=== PATIENT | female | born 1975 | race American Indian/Alaskan Native ===

== ENCOUNTER 2018-03-04 11:22 | Emergency (ER) | payer OTHER ==
[2018-03-04 11:54] VITALS: BP 128/83
--- NOTE | 2018-03-04 12:04 | Emergency Department Report ---
HPI - General Chief Complaint: Extremity Injury, Lower Time Seen by Provider: 03/04/18 11:57 - HPI HPI: 42-year-old female presents to the emergency department with a complaint of right hamstring pain since last night. The patient was walking into her home holding groceries and started to slip. She tried to catch herself but in doing so she felt a tearing sensation to the back of her leg along where the hamstring is. She is able to ambulate but has pain with doing so. She denies any other past medical history. She has not taken anything for her symptoms prior to presentation. ED Past Medical Hx - Past Medical History Previous Medical History?: No - Surgical History Additional Surgical History: 3 c-sections, Lap,partial hysterectomy, tubiligation and reversal - Social History Smoking Status: Never Smoker Substance Use Type: None - Medications Home Medications: Home Medications Medication Instructions Recorded Confirmed Last Taken Type HYDROcodone/APAP 5-325 [[place] 1 each PO Q6HR PRN #10 tablet 03/04/18 Unknown Rx 5/325] ED Review of Systems ROS: Stated complaint: HAMSTRING INJURY Other details as noted in HPI Comment: All other systems reviewed and negative Constitutional: denies: chills, fever Eyes: denies: eye pain, eye discharge, vision change ENT: denies: ear pain, throat pain Respiratory: denies: cough, shortness of breath, wheezing Cardiovascular: denies: chest pain, palpitations Gastrointestinal: denies: abdominal pain, nausea, diarrhea Genitourinary: denies: urgency, dysuria, discharge Musculoskeletal: myalgia. denies: joint swelling Skin: denies: rash, lesions Neurological: denies: headache, weakness, paresthesias Physical Exam - Physical Exam Vital Signs: Vital Signs 03/04/18 11:51 Temperature 99.1 F Pulse Rate 65 Respiratory 16 Rate Blood Pressure 128/83 O2 Sat by Pulse 100 Oximetry Physical Exam: GENERAL: The patient is well-developed well-nourished. HENT: Normocephalic. Atraumatic. Patient has moist mucous membranes. EYES: Extraocular motions are intact. NECK: Supple. Trachea is midline. CHEST/LUNGS: Clear to auscultation. There is no respiratory distress noted. HEART/CARDIOVASCULAR: Regular. There is no tachycardia. There is no murmur. ABDOMEN: There is no abdominal distention. SKIN: Skin is warm and dry. NEURO: The patient is awake, alert, and oriented. The patient is cooperative. The patient has no focal neurologic deficits. The patient has normal speech. MUSCULOSKELETAL: The patient has pain to the posterior proximal right leg, about the hamstring, with straight leg extension and flexion. ED Course Vital Signs 03/04/18 11:51 Temperature 99.1 F Pulse Rate 65 Respiratory 16 Rate Blood Pressure 128/83 O2 Sat by Pulse 100 Oximetry ED Medical Decision Making - Medical Decision Making Patient had sudden pain and a tearing sensation to the back of the right leg, along the hamstring, last night. She is able to ambulate but has pain with doing so. Given the location of her discomfort and the concern that it is the hamstring muscle, I do not feel that any imaging of the femur is necessary at this time. 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 She does have reproducible discomfort with both straight leg extension and flexion over the hamstring. She will placed on crutches and has been given referrals for orthopedic groups. She has been given a small amount of pain medication. She will return to the ER with any worsening of her symptoms or any acute distress. - Differential Diagnosis hamstring sprain, hamstring tear, avulsion fracture, muscle spasm Critical Care Time: No Critical care attestation.: If time is entered above; I have spent that time in minutes in the direct care of this critically ill patient, excluding procedure time. ED Disposition Clinical Impression: Hamstring injury Qualifiers: Encounter type: initial encounter Laterality: right Qualified Code(s): S76.301A - Unspecified injury of muscle, fascia and tendon of the posterior muscle group at thigh level, right thigh, initial encounter Disposition: - TO HOME OR SELFCARE Is pt being admited?: No Condition: Stable Additional Instructions: Use the crutches as needed. I have given you a referral for Dr. Kohli and [facility], 2 different orthopedic groups, to follow up regarding your right leg/hamstring pains. Return to the emergency Department with any worsening of your symptoms or any acute distress. You have been prescribed a medication that is sedating and therefore should not be taken prior to driving, working, and responsible for children and in no way should be mixed with alcohol of any quantity. Prescriptions: HYDROcodone/APAP 5-325 [[place] 5/325] 1 each PO Q6HR PRN #10 tablet PRN Reason: Pain Referrals: LESLY KOHLI MD [Staff Physician] - 2-3 Days [facility] [Provider Group] - 2-3 Days Time of Disposition: 12:04
== END 2018-03-04 12:26 | disposition home or self-care (01) ==
LOC: ED 11:22
DX: S76.301A Unspecified injury of muscle, fascia and tendon of the posterior muscle group at thigh level, right thigh, initial encounter (principal); Z90.710 Acquired absence of both cervix and uterus; Z98.51 Tubal ligation status; Z88.1 Allergy status to other antibiotic agents; W18.49XA Other slipping, tripping and stumbling without falling, initial encounter; Y93.89 Activity, other specified; Y99.8 Other external cause status; Y92.019 Unspecified place in single-family (private) house as the place of occurrence of the external cause
CPT/HCPCS: 99283

== ENCOUNTER 2020-11-13 10:07 | Emergency (ER) | payer BC, OTHER ==
[2020-11-13 10:31] VITALS: BP 132/103
[2020-11-13 11:12] LABS: Bilirubin,Urine NEG (Negative); Blood,Urine LG (Negative); Color,Urine Amber (Yellow); Mucus,Urine 1+ /HPF
[2020-11-13 11:16] LABS: RBC,Urine > 182.0 /HPF (0.0-6.0); WBC,Urine > 182.0 /HPF (0.0-6.0)
[2020-11-13] MEDS ORDERED: SULFAMETHOXAZOLE/TRIMETHOPRIM 800/160MG DS TAB PO ONE (12:02)
--- NOTE | 2020-11-13 12:02 | Emergency Department Report ---
ED Female HPI - General Chief complaint: Vaginal Bleeding Stated complaint: VAG BLEEDING Time Seen by Provider: 11/13/20 11:14 Source: patient Mode of arrival: Ambulatory Limitations: No Limitations - History of Present Illness Initial comments: 45-year-old female, no past medical history, presents to ED with hematuria. Patient is status post hysterectomy. She states after urinating this morning, she saw blood on the toilet paper when she wiped. States urine was not initially dark, however has become darker throughout the day. Patient reports urinary frequency and urgency. She denies any fever, nausea or vomiting, back pain. She reports suprapubic discomfort at the end of urination. Complaint: other -: This morning Severity: mild Quality: cramping Consistency: constant Improves with: none Worsens with: urination Are you Now?: No Associated Symptoms: hematuria. denies: nausea/vomiting, fever/chills - Related Data Previous Rx's Medication Instructions Recorded Last Taken Type HYDROcodone/APAP 5-325 [[place] 1 each PO Q6HR PRN #10 tablet 03/04/18 Unknown Rx 5/325] Phenazopyridine [Pyridium] 200 mg PO TID #6 tab 11/13/20 Unknown Rx Sulfamethoxazole/Trimethoprim 1 each PO BID #5 tablet 11/13/20 Unknown Rx [Bactrim DS TAB] Allergies Allergy/AdvReac Type Severity Reaction Status Date / Time ceftriaxone [From Rocephin] Allergy Unknown Verified 03/04/18 11:54 metoclopramide [From Reglan] Allergy Unknown Verified 03/04/18 11:54 ED Review of Systems ROS: Stated complaint: VAG BLEEDING Other details as noted in HPI Comment: All other systems reviewed and negative Constitutional: denies: chills, fever Gastrointestinal: denies: nausea, vomiting Genitourinary: urgency, frequency, hematuria Musculoskeletal: denies: back pain ED Past Medical Hx - Surgical History Past Surgical History?: Yes Additional Surgical History: 3 c-sections, Lap,partial hysterectomy,tubiligation and reversal - Social History Smoking Status: Never Smoker - Medications Home Medications: Home Medications Medication Instructions Recorded Confirmed Last Taken Type HYDROcodone/APAP 5-325 [[place] 1 each PO Q6HR PRN #10 tablet 03/04/18 Unknown Rx 5/325] Phenazopyridine [Pyridium] 200 mg PO TID #6 tab 11/13/20 Unknown Rx Sulfamethoxazole/Trimethoprim 1 each PO BID #5 tablet 11/13/20 Unknown Rx [Bactrim DS TAB] ED Physical Exam - General Limitations: No Limitations General appearance: alert, in no apparent distress - Head Head exam: Present: atraumatic, normocephalic - Eye Eye exam: Present: normal appearance, EOMI - ENT ENT exam: Present: mucous membranes moist - Neck Neck exam: Present: normal inspection - Respiratory Respiratory exam: Present: normal lung sounds bilaterally. Absent: respiratory distress - Cardiovascular Cardiovascular Exam: Present: regular rate, normal rhythm - GI/Abdominal GI/Abdominal exam: Present: soft, tenderness (Mild suprapubic). Absent: disten ded - Extremities Exam Extremities exam: Present: normal inspection - Back Exam Back exam: Absent: CVA tenderness (R), CVA tenderness (L) - Neurological Exam Neurological exam: Present: alert, oriented X3 - Psychiatric Psychiatric exam: Present: normal affect, normal mood - Skin Skin exam: Present: warm, dry, intact, normal color ED Course Vital Signs 11/13/20 11/13/20 11/13/20 10:30 10:51 12:34 Temperature 98 F Pulse Rate 70 74 Blood Pressure 132/103 [r] O2 Sat by Pulse 100 100 100 Oximetry ED Medical Decision Making - Medical Decision Making 45-year-old female with hematuria, urinary urgency and frequency. UA shows greater than 182 WBCs and RBCs. Patient be treated for UTI. Prescriptions given. Outpatient follow-up advised, return precautions given. - Differential Diagnosis UTI Critical care attestation.: If time is entered above; I have spent that time in minutes in the direct care of this critically ill patient, excluding procedure time. ED Disposition Clinical Impression: UTI (urinary tract infection) Disposition: DC- TO HOME OR SELFCARE Is pt being admited?: No Condition: Stable Instructions: Urinary Tract Infection, Adult, [id number] Prescriptions: Sulfamethoxazole/Trimethoprim [Bactrim DS TAB] 1 each PO BID #5 tablet Phenazopyridine [Pyridium] 200 mg PO TID #6 tab Referrals: [facility] [Provider Group] - 3-5 Days [facility], [Primary Care Provider] - 3-5 Days YOVANI ANTUNEZ MD [Staff Physician] - 3-5 Days Time of Disposition: 12:04
[2020-11-13] MEDS ORDERED: PHENAZOPYRIDINE 200 MG TAB PO ONE (12:04)
== END 2020-11-13 12:35 | disposition home or self-care (01) ==
LOC: ED 10:07
DX: N39.0 Urinary tract infection, site not specified (principal); R31.9 Hematuria, unspecified; Z90.710 Acquired absence of both cervix and uterus; Z98.51 Tubal ligation status; Z98.890 Other specified postprocedural states; Z79.899 Other long term (current) drug therapy; Z88.8 Allergy status to other drugs, medicaments and biological substances
CPT/HCPCS: 81001; 99283